=== PATIENT | male | born 2000 | race Caucasian/White ===

== ENCOUNTER 2018-08-20 08:34 | Outpatient (CLI) | payer OTHER ==
[~2018-08-20 08:34] MED LIST: ALBU6.7H3 IH
[2018-08-20 09:53] LABS: BASOPHILS % (AUTO) 0.3 % (0-1); EOSINOPHILS # (AUTO) 0.3 X10'3 (0-0.9); EOSINOPHILS % (AUTO) 3.8 % (0-6); HEMATOCRIT 48.6 % (42.0-52.0); HEMOGLOBIN 16.4 g/dl (14.0-17.9); LYMPHOCYTES # (AUTO) 2.2 X10'3 (1.1-4.8); LYMPHOCYTES % (AUTO) 24.2 % (21-51); MEAN CORPUSCULAR HEMOGLOBIN 29.5 PG (27.0-31.0); MEAN CORPUSCULAR HGB CONC 33.9 g/dL (33.0-36.5); MEAN CORPUSCULAR VOLUME 87.1 FL (78-98); MEAN PLATELET VOLUME 8.5 FL (7.4-10.4); MONOCYTES # (AUTO) 0.6 X10'3 (0-0.9); MONOCYTES % (AUTO) 7.1 % (2-12); NEUTROPHILS # (AUTO) 5.8 X10'3 (1.8-7.7); NEUTROPHILS % (AUTO) 64.6 % (42-75); PLATELET COUNT 222 X10'3 (140-440); RED BLOOD COUNT 5.58 X10'6 (4.70-6.10); RED CELL DISTRIBUTION WIDTH 12.8 % (11.5-14.5); WHITE BLOOD COUNT 8.9 X10'3 (4.5-11.0)
[2018-08-20 10:14] LABS: CLARITY,URINE CLEAR (Clear); COLOR,URINE YELLOW (Yellow); GLUCOSE, URINE NEGATIVE (Neg); KETONES,URINE NEGATIVE (Neg); LEUKOCYTE ESTERASE ,URINE NEGATIVE (Neg); NITRITES, URINE NEGATIVE (Neg); OCCULT BLOOD,URINE NEGATIVE (Neg); PH,URINE 5.5 (4.8-8.0); PROTEIN,URINE NEGATIVE (Neg); UROBILINOGEN,URINE 0.2 E.U/dL (0.2-1.0)
[2018-08-20 10:21] LABS: ALANINE AMINOTRANSFERASE 49 U/L (12-78); ALBUMIN/GLOBULIN RATIO 1.3 (1.1-1.5); ALKALINE PHOSPHATASE 67 IU/L (20-180); ANION GAP 9 (8-16); ASPARTATE AMINO TRANSFERASE 51 U/L (10-37); BILIRUBIN,TOTAL 0.4 MG/DL (0.1-1.0); BLOOD UREA NITROGEN 19 MG/DL (7-18); BUN/CREATININE RATIO 18.8 (5.4-32.0); CALCIUM 9.4 MG/DL (8.5-10.1); CHLORIDE 103 MMOL/L (99-107); CHOL/HDL RATIO 2.1 (0.00-4.99); CHOLESTEROL 110 MG/DL (0-200); CREATININE 1.01 MG/DL (0.60-1.10); GLUCOSE 94 MG/DL (70-104); HDL CHOLESTEROL 52 MG/DL (35-60); LDL CHOLESTEROL 56 MG/DL (50-100); POTASSIUM 3.8 MMOL/L (3.5-5.1); SODIUM 141 MMOL/L (135-145); TOTAL CARBON DIOXIDE 29.3 MMOL/L (24-32); TOTAL PROTEIN 7.2 G/DL (6.4-8.2); TRIGLYCERIDES 23 MG/DL (20-135); eGFR > 90 ML/MIN
[2018-08-20 11:10] LABS: UA COLLECTION TYPE CLN CATCH MIDSTREAM
== END 2018-08-20 23:59 | disposition home or self-care (01) ==
LOC: LAB 08:34
PROVIDERS: ATTEND Family Medicine
DX: M77.12 Lateral epicondylitis, left elbow (principal); L23.7 Allergic contact dermatitis due to plants, except food; J45.909 Unspecified asthma, uncomplicated; Z76.89 Persons encountering health services in other specified circumstances; Z87.09 Personal history of other diseases of the respiratory system
CPT/HCPCS: 36415; 80053; 80061; 81003; 84439; 84443; 85025

== ENCOUNTER 2019-06-02 12:40 | Emergency (ER) | payer OTHER ==
[~2019-06-02] VITALS: Ht 182.9 cm; Wt 105.5 kg
[2019-06-02 12:53] VITALS: BP 142/41
[2019-06-02] MEDS ORDERED: HYDROcodone/acetaminophen 5mg/325mg tablet PO ONE (13:55)
[2019-06-02] MEDS ORDERED: ondansetron 4mg rapidly disintigrating tab PO ONE (13:55)
[2019-06-02] MEDS ORDERED: IBUP-1984 PO (13:59)
[2019-06-02] MEDS ORDERED: TRAM50TA2 PO (13:59)
== END 2019-06-02 14:23 | disposition home or self-care (01) ==
LOC: ER 12:41
DX: M25.462 Effusion, left knee (principal); W22.8XXA Striking against or struck by other objects, initial encounter; Y93.89 Activity, other specified; Y92.89 Other specified places as the place of occurrence of the external cause; Y99.9 Unspecified external cause status
CPT/HCPCS: 29505; 73564; 99283

== ENCOUNTER 2019-06-05 10:53 | Outpatient (CLI) | payer OTHER ==
[~2019-06-05 10:53] MED LIST changes: +IBUP-1984 PO; +TRAM50TA2 PO
== END 2019-06-05 23:59 | disposition home or self-care (01) ==
LOC: RAD 10:53
PROVIDERS: ATTEND Family Medicine
DX: S83.32XA Tear of articular cartilage of left knee, current, initial encounter (principal); M25.462 Effusion, left knee; X58.XXXA Exposure to other specified factors, initial encounter; Y93.89 Activity, other specified; Y92.89 Other specified places as the place of occurrence of the external cause; Y99.8 Other external cause status
CPT/HCPCS: 73721

== ENCOUNTER 2019-06-19 11:42 | Day surgery (SDC) | payer OTHER ==
[2019-06-16 15:25] LABS: BASOPHILS # (AUTO) 0.1 X10'3 (0-0.2); BASOPHILS % (AUTO) 0.6 % (0-1); EOSINOPHILS # (AUTO) 0.3 X10'3 (0-0.9); EOSINOPHILS % (AUTO) 3.3 % (0-6); LYMPHOCYTES # (AUTO) 2.6 X10'3 (1.1-4.8); LYMPHOCYTES % (AUTO) 33.6 % (21-51); MEAN CORPUSCULAR HGB CONC 35.3 g/dL (33.0-36.5); MEAN CORPUSCULAR VOLUME 85.1 FL (78-98); MEAN PLATELET VOLUME 8.2 FL (7.4-10.4); MONOCYTES # (AUTO) 0.6 X10'3 (0-0.9); MONOCYTES % (AUTO) 7.4 % (2-12); NEUTROPHILS # (AUTO) 4.3 X10'3 (1.8-7.7); NEUTROPHILS % (AUTO) 55.1 % (42-75); PRE OP HEMATOCRIT 47.4 % (42.0-52.0); PRE OP HEMOGLOBIN 16.7 g/dL (14.0-17.9); PRE OP PLATELET COUNT 295 X10'3 (140-440); RED BLOOD COUNT 5.57 X10'6 (4.70-6.10); RED CELL DISTRIBUTION WIDTH 12.7 % (11.5-14.5)
[2019-06-16 15:39] LABS: ALBUMIN 4.2 G/DL (3.4-5.0); ALBUMIN/GLOBULIN RATIO 1.3 (1.1-1.5); ALKALINE PHOSPHATASE 88 IU/L (20-180); BLOOD UREA NITROGEN 23 MG/DL (7-18); BUN/CREATININE RATIO 20.2 (5.4-32.0); CHLORIDE 102 MMOL/L (99-107); CREATININE 1.14 MG/DL (0.60-1.10); PRE OP ALT 36 U/L (30-65); PRE OP ANION GAP 7 (8-16); PRE OP AST 51 U/L (10-37); PRE OP BILIRUB, TOTAL 0.5 MG/DL (0.0-1.0); PRE OP GLUCOSE 85 MG/DL (70-104); PRE OP POTASSIUM 4.2 MMOL/L (3.4-5.1); PRE OP SODIUM 140 MMOL/L (135-145); TOTAL CARBON DIOXIDE 30.9 MMOL/L (24-32); TOTAL PROTEIN 7.5 G/DL (6.4-8.2); eGFR 82 ML/MIN
[~2019-06-19] VITALS: Ht 182.9 cm; Wt 104.3 kg
[2019-06-19] VITALS (12 sets, daily range): BP systolic 120–144; BP diastolic 71–82
[~2019-06-19 11:42] MED LIST changes: -ALBU6.7H3 IH; +BUPIVAcaine 0.5% inj/PF 60 ML ONE; +CREATININE; -IBUP-1984 PO; +LIDOcaine 1% 30ml preserv. free vial ONE; +LIDOcaine 1% W/epiNEPHrine 1:100,000 20ml vial ONE; +LIDOcaine 1% W/epiNEPHrine 1:200,000 10ml vial ONE; +MAGNESIUM; -TRAM50TA2 PO; +VANCOMYCIN INJ 1000 MG in NORMAL SALINE 250ml IV.SOLN IV ONE; +[UNRECOGNIZED DRUG - OTHER]; +cefazolin/dext.iso 2gm/100ml 100 ML IV ONE; +famotidine 10mg tablet PO ONE; +morphine 10mg/ml inj. ONE; +ringers solution, lacted 1,000 ML IV SCH
[2019-06-19] MEDS ORDERED: ringers solution, lacted 1,000 ML IV SCH (12:27)
[2019-06-19] MEDS ORDERED: fentaNYL/PF 50MCG/1 ML 2ML syringe IV PRN ×2 (12:30)
[2019-06-19] MEDS ORDERED: labetalol 20mg/4ml (5mg/ml) syringe IV PRN (12:30)
[2019-06-19] MEDS ORDERED: morphine 4 MG/ML inj SYRINge IV PRN ×2 (12:30)
[2019-06-19] MEDS ORDERED: ondansetron/PF 4mg/2ml inj IV PRN (12:30)
[2019-06-19] MEDS ORDERED: hydrALAZINE 20mg/ml inj. IV PRN (12:30)
[2019-06-19] MEDS ORDERED: midazolam 2 mg/2 ml injection ONE (12:31)
[2019-06-19] MEDS ORDERED: LIDOcaine 2% (20mg/ml) 5ml vial ONE (12:32)
[2019-06-19] MEDS ORDERED: fentaNYL /PF 50mcg/ml 5ml ampule ONE (12:32)
[2019-06-19] MEDS ORDERED: propofol inj 20 ML IV ONE (12:32)
[2019-06-19] MEDS ORDERED: ROPIVAcaine 0.5% (5mg/ml) 30ml vial ONE (12:53)
[2019-06-19] MEDS ORDERED: dexamethasone sod phosphate 4mg/ml inj. ONE (12:54)
[2019-06-19] MEDS ORDERED: ondansetron/PF 4mg/2ml inj ONE (13:15)
--- NOTE | 2019-06-19 14:40 | NUR ---
Received from OR via , accompanied by Anesthesiologist and report given by Anesthesiolgist. Patient arrived via gurney. vss as charted. piv to rt FA, LR infusing as ordered. Hinged brace to left knee with marcio wrap CDI, Will continue to monitor.
[2019-06-19] MEDS ORDERED: HYDROcodone/acetaminophen 5mg/325mg tablet PO ONE (16:00)
--- NOTE | 2019-06-19 16:19 | NUR ---
patient dc criteria met, patient and family verbalized understanding. piv dc'd cath tip intact. Dressing to left knee with brace. CDI. PIV DC'D CATH TIP INTACT. PATIENT TO PERSONAL VEHICLE WITH ALL PERSONAL BELONGINGS.
== END 2019-06-19 16:29 | disposition home or self-care (01) ==
LOC: PAS 11:42
PROVIDERS: ATTEND Orthopaedic Surgery
DX: S83.272A Complex tear of lateral meniscus, current injury, left knee, initial encounter (principal); S83.095A Other dislocation of left patella, initial encounter; M23.42 Loose body in knee, left knee; M94.262 Chondromalacia, left knee; J45.909 Unspecified asthma, uncomplicated; Z79.899 Other long term (current) drug therapy; Z98.890 Other specified postprocedural states; G89.18 Other acute postprocedural pain; X58.XXXA Exposure to other specified factors, initial encounter; Y93.89 Activity, other specified; Y92.89 Other specified places as the place of occurrence of the external cause; Y99.8 Other external cause status
CPT/HCPCS: 27405; 29881; 36415; 64447; 80053; 82948; 85025; C1713; J1100; J2001; J2250; J2270; J2405; J2704; J3010; J3370; J7120; A4215; A4618; A6253; A6449; A7000; J2795

== ENCOUNTER 2020-02-16 14:19 | Outpatient (CLI) | payer BC ==
[~2020-02-16 14:19] MED LIST changes: -BUPIVAcaine 0.5% inj/PF 60 ML ONE; -LIDOcaine 1% 30ml preserv. free vial ONE; -LIDOcaine 1% W/epiNEPHrine 1:100,000 20ml vial ONE; -LIDOcaine 1% W/epiNEPHrine 1:200,000 10ml vial ONE; -VANCOMYCIN INJ 1000 MG in NORMAL SALINE 250ml IV.SOLN IV ONE; -cefazolin/dext.iso 2gm/100ml 100 ML IV ONE; -famotidine 10mg tablet PO ONE; -morphine 10mg/ml inj. ONE; -ringers solution, lacted 1,000 ML IV SCH
== END 2020-02-16 23:59 | disposition home or self-care (01) ==
LOC: RAD 14:19
PROVIDERS: ATTEND Family Medicine
DX: S02.2XXA Fracture of nasal bones, initial encounter for closed fracture (principal); M79.672 Pain in left foot; X58.XXXA Exposure to other specified factors, initial encounter; Y93.89 Activity, other specified; Y92.89 Other specified places as the place of occurrence of the external cause; Y99.8 Other external cause status
CPT/HCPCS: 70160; 73630